=== PATIENT | male | born 1980 | race Hispanic/Latino ===

== ENCOUNTER 2017-11-29 11:29 | Emergency (ER) | payer MEDICAID ==
[2017-11-29] MEDS ORDERED: TETANUS/DIPHTHERIA TOXOID [ADULT] 0.5 ML VIAL IM ONE (11:41)
[2018-01-07] MEDS ORDERED: BUDE10.2 IH (12:44)
[2018-01-07] MEDS ORDERED: ALBUTEROL (12:44)
[2018-01-07] MEDS ORDERED: IBUPROFEN (12:46)
== END 2017-11-29 12:04 | disposition home or self-care (01) ==
LOC: EDH 11:29
DX: S61.512A Laceration without foreign body of left wrist, initial encounter (principal); J45.909 Unspecified asthma, uncomplicated; Z88.8 Allergy status to other drugs, medicaments and biological substances; X58.XXXA Exposure to other specified factors, initial encounter; Y93.89 Activity, other specified; Y92.89 Other specified places as the place of occurrence of the external cause; Y99.8 Other external cause status
CPT/HCPCS: 90471; 90714

== ENCOUNTER 2018-01-09 09:05 | Day surgery (SDC) | payer MEDICAID ==
[~2018-01-09] VITALS: Ht 177.8 cm; Wt 139.7 kg
[~2018-01-09 09:05] MED LIST: ALBUTEROL; BUDE10.2 IH; IBUPROFEN; SODIUM CHLORIDE 0.9% 1000ML 1,000 ML IV ONE
[2018-01-09 09:23] VITALS: BP 131/71
[2018-01-09] MEDS ORDERED: PROPOFOL 10 MG/ML 20ML VIAL IV ONE ×4 (10:36→11:17)
[2018-01-09 11:30] VITALS: BP 122/50
== END 2018-01-09 12:10 | disposition home or self-care (01) ==
LOC: ENDO 09:05 → DAH 09:05 → ENDO 12:10
PROVIDERS: ATTEND Internal Medicine Gastroenterology
DX: K62.1 Rectal polyp (principal); K31.7 Polyp of stomach and duodenum; D50.9 Iron deficiency anemia, unspecified; K29.50 Unspecified chronic gastritis without bleeding; J45.998 Other asthma; Z79.899 Other long term (current) drug therapy; Z68.42 Body mass index [BMI] 45.0-49.9, adult
CPT/HCPCS: 43239; 43251; 45380; 88305; 88312; A4606; J2704 ×4; J7030